=== PATIENT | female | born 1930 | race Caucasian/White ===

== ENCOUNTER 2016-11-18 06:26 | Emergency (ER) | payer OTHER ==
[~2016-11-18] VITALS: Ht 157.5 cm; Wt 74.3 kg
[~2016-11-18 06:26] MED LIST: ARTIFICIAL TEAR15 M3 BOTH EYES; ASPIRIN81 M2 PO; ATROVENT 00.5 MG/2.5 IH; BACLOFEN10 MG PO; BENTYL10 MG PO; CLONIDINE HCL0.1 MG PO; COUGH CONT100 MG/5 M PO; DAILY VITE1 EAC1 PO; DULCOLAX10 MG PR; DULCOLAX5 MG PO; EFFEXOR XR75 MG PO; ELIQUIS2.5 MG PO; ELIQUIS5 MG PO; FUROSEMIDE20 MG PO; GABAPENTIN300 MG PO; HYDROCHLOROTHIA25 MG PO; LEVOFLOXACIN750 MG PO; LIPITOR40 MG PO; LISINOPRIL20 MG PO; LISINOPRIL40 MG PO; LO-DOSE ASPIRIN81 M1 PO; LOPRESSOR100 M1 PO; LOPRESSOR50 MG PO; LOVENOX40 MG/0.4 SC; METAXALONE400 MG PO; METAXALONE800 MG PO; METOPROLOL TART50 MG PO; METRONIDAZOLE500 MG PO; MILK OF MAGN PO; MULTI VITAMIN1 EACH PO; MULTIVITAMIN1 EAC2 PO; NATURAL BALANCE15 M1 BOTH EYES; NORCO 5/3251 TABLET PO; NORVASC10 MG PO; NORVASC5 MG OP; NORVASC5 MG PO; PROCTOZONE-HC30 GM PR; PROZAC20 MG PO; SENNA LAXATIVE8.6 MG PO; SENNA S TABLET1 EACH PO; SENNA-DOCUSATE1 EAC1 PO; TEARS NATURALE-15 ML BOTH EYES; TEARS NATURALE1 EACH BOTH EYES; TRAZODONE HCL50 MG PO; TYLENOL ARTHRI650 MG PO; TYLENOL REGULA325 MG PO; ULTRAM50 MG PO; ZANTAC150 MG PO
[2016-11-18] MEDS ORDERED: PERCOCET 5/31 TABLET PO (10:16)
[2016-11-18 12:01] VITALS: BP 143/89
== END 2016-11-18 12:22 ==
LOC: EME 06:26
PROC: 2W3MX1Z Immobilization of Left Lower Extremity using Splint (ICD-10-PCS; principal; 2016-11-18)
DX: S82.832A Other fracture of upper and lower end of left fibula, initial encounter for closed fracture (principal); S82.52XA Displaced fracture of medial malleolus of left tibia, initial encounter for closed fracture; W18.30XA Fall on same level, unspecified, initial encounter; Y92.129 Unspecified place in nursing home as the place of occurrence of the external cause; E78.5 Hyperlipidemia, unspecified; I10 Essential (primary) hypertension; Z86.73 Personal history of transient ischemic attack (TIA), and cerebral infarction without residual deficits; Z79.82 Long term (current) use of aspirin; Z87.891 Personal history of nicotine dependence
CPT/HCPCS: 73502; 73590; 73610; 99281; 99284; J3010

== ENCOUNTER 2017-09-24 16:03 | Observation (INO) | payer OTHER ==
[~2017-09-24] VITALS: Ht 157.5 cm; Wt 74.1 kg
[~2017-09-24 16:03] MED LIST changes: +PERCOCET 5/31 TABLET PO
[2017-09-24 17:21] LABS: HEMATOCRIT 42.9 % (36.0-46.0); MCH 27.2 PG (29.0-34.0); MCHC 33.1 G/DL (30.0-36.0); MCV 82.2 FL (83-99); MEAN PLAT.VOLUME 10.6 uM^3 (9.5-12.4); PLATELET COUNT 323 K/uL (156-360); RBC DIS.WIDTH-CV 15.9 % (11.8-14.6); RBC DIS.WIDTH-SD 47.6 % (39-53); RED BLOOD COUNT 5.22 M/uL (3.80-5.20); WHITE BLOOD COUNT 11.4 K/uL (4.1-10.2)
[2017-09-24 17:31] LABS: CHLORIDE 108 mEq/L (99-109); POTASSIUM 3.6 mEq/L (3.7-5.4); SODIUM 140 mEq/L (136-147)
[2017-09-24 17:32] LABS: GLUCOSE 121 mg/dL (70-99)
[2017-09-24 17:34] LABS: ANION GAP 7 MEQ/L (2-14)
[2017-09-24 17:36] LABS: GFR ESTIMATE (CALCULATED) > 59 mL/min/
[2017-09-24 17:37] LABS: UREA NITROGEN (BUN) 15 mg/dL (9-23)
[2017-09-24 17:41] LABS: TROP-I INTERPRETATION NEGATIVE; TROPONIN-I 0.01 ng/mL (0.0-0.30)
[2017-09-24 21:08] VITALS: BP 184/78
[2017-09-24 21:29] LABS: HDL CHOLESTEROL 38 MG/DL (Desirable>=50); LDL CHOLESTEROL 77 mg/dL (Desirable<100); NON-HDL CHOLESTEROL 107 mg/dL (Desirable<160); TOTAL CHOLESTEROL 145 mg/dL (Desirable<200); TRIGLYCERIDES 148 MG/DL (Normal: <150)
[2017-09-25 00:05] LABS: TROP-I INTERPRETATION NEGATIVE; TROPONIN-I < 0.01 ng/mL (0.0-0.30)
[2017-09-25 00:10] VITALS: BP 178/81
[2017-09-25] MEDS ORDERED: GABAPENTIN100 MG PO (01:52)
[2017-09-25] MEDS ORDERED: ST. JOSEPH ASPI81 MG PO (01:57)
[2017-09-25] MEDS ORDERED: NITROSTAT0.4 MG SL (01:58)
[2017-09-25] MEDS ORDERED: COLACE100 MG PO (01:59)
[2017-09-25] MEDS ORDERED: MELATONIN3 MG PO (02:01)
[2017-09-25] MEDS ORDERED: BENTYL10 MG PO (02:01)
[2017-09-25] MEDS ORDERED: VITAMIN D22000 UNIT PO (02:02)
[2017-09-25] MEDS ORDERED: LISINOPRIL30 MG PO (02:07)
[2017-09-25] MEDS ORDERED: EFFEXOR75 MG PO (02:09)
[2017-09-25] MEDS ORDERED: OMEPRAZOLE20 MG PO (02:11)
[2017-09-25 04:06] VITALS: BP 180/82
[2017-09-25 05:36] LABS: TROP-I INTERPRETATION NEGATIVE; TROPONIN-I 0.02 ng/mL (0.0-0.30)
[2017-09-25 05:50] LABS: ANION GAP 12 MEQ/L (2-14); CHLORIDE 106 MEQ/L (99-109); GFR ESTIMATE (CALCULATED) > 59 mL/min/; GLUCOSE 114 mg/dL (70-99); MAGNESIUM 1.8 mg/dl (1.3-2.7); SAMPLE HEMOLYSIS CHECK 0; SAMPLE ICTERIC CHECK 0; SAMPLE LIPEMIA CHECK 0; SODIUM 142 MEQ/L (136-147); UREA NITROGEN (BUN) 14 mg/dL (9-23)
[2017-09-25 08:00] VITALS: BP 103/58
[2017-09-25 11:16] VITALS: BP 197/84
[2017-09-25] MEDS ORDERED: IMDUR60 MG PO (14:47)
[2017-09-25] MEDS ORDERED: LISINOPRIL40 MG PO (14:47)
[2017-09-25 16:05] VITALS: BP 184/83
[2017-09-25 18:35] VITALS: BP 170/80
== END 2017-09-25 18:40 ==
LOC: EME 16:03 → EDOF 19:39 → 5WEST 19:39 → EDOF 19:39 → ENRESERV 19:41 → 5WEST 20:39
PROVIDERS: Emergency Medicine; Physician Assistant
DX: R07.9 Chest pain, unspecified (principal); I10 Essential (primary) hypertension; I48.2 Chronic atrial fibrillation; I69.354 Hemiplegia and hemiparesis following cerebral infarction affecting left non-dominant side; Z99.3 Dependence on wheelchair; I73.9 Peripheral vascular disease, unspecified; K58.0 Irritable bowel syndrome with diarrhea; E78.5 Hyperlipidemia, unspecified; R94.31 Abnormal electrocardiogram [ECG] [EKG]; R06.02 Shortness of breath; Z87.891 Personal history of nicotine dependence; Z88.0 Allergy status to penicillin; Z88.8 Allergy status to other drugs, medicaments and biological substances; Z79.01 Long term (current) use of anticoagulants; Z79.82 Long term (current) use of aspirin; Z66 Do not resuscitate
CPT/HCPCS: 71020; 80048; 80061; 83735; 84484; 85027; 93005; 99281; 99285; G0378

== ENCOUNTER 2018-03-27 13:09 | Inpatient (IN) | payer OTHER ==
[~2018-03-27] VITALS: Ht 162.6 cm; Wt 63.9 kg
[~2018-03-27 13:09] MED LIST changes: +COLACE100 MG PO; +EFFEXOR75 MG PO; +GABAPENTIN100 MG PO; +GENTEAL TEARS 015 ML BOTH EYES; +IMDUR60 MG PO; +LISINOPRIL30 MG PO; +MELATONIN3 MG PO; +NITROSTAT0.4 MG SL; +OMEPRAZOLE20 MG PO; +ST. JOSEPH ASPI81 MG PO; -TEARS NATURALE-15 ML BOTH EYES; +VITAMIN D22000 UNIT PO
[2018-03-27 14:03] LABS: HEMATOCRIT 49.9 % (36.0-46.0); HEMOGLOBIN 16.7 G/DL (11.9-15.5); MCH 28.3 PG (29.0-34.0); MCHC 33.5 G/DL (30.0-36.0); MCV 84.4 FL (83-99); PLATELET COUNT 320 K/uL (156-360); RBC DIS.WIDTH-CV 16.4 % (11.8-14.6); RBC DIS.WIDTH-SD 49.1 % (39-53); RED BLOOD COUNT 5.91 M/uL (3.80-5.20); WHITE BLOOD COUNT 22.7 K/uL (4.1-10.2)
[2018-03-27 14:20] LABS: ALBUMIN 4.1 g/dL (3.2-4.8)
[2018-03-27 14:21] LABS: CHLORIDE 106 mEq/L (99-109); POTASSIUM 4.1 mEq/L (3.7-5.4); SODIUM 139 mEq/L (136-147)
[2018-03-27 14:23] LABS: GLUCOSE 114 mg/dL (70-99); TOTAL PROTEIN 7.3 g/dL (6.4-8.3)
[2018-03-27 14:25] LABS: TOTAL BILIRUBIN 0.9 mg/dL (0.0-1.0)
[2018-03-27 14:26] LABS: ALKALINE PHOSPHATASE 112 IU/L (3-129)
[2018-03-27 14:27] LABS: CREATININE 0.9 mg/dL (0.6-1.3); GFR ESTIMATE (CALCULATED) > 59 mL/min/
[2018-03-27 14:28] LABS: AST (GOT) 26 IU/L (2-34); UREA NITROGEN (BUN) 12 mg/dL (9-23)
[2018-03-27 14:30] LABS: ALT (GPT) 24 IU/L (3-49); LIPASE 21 U/L (1.0-51.0)
[2018-03-27 14:33] LABS: TROP-I INTERPRETATION NEGATIVE; TROPONIN-I < 0.01 ng/mL (0.0-0.30)
[2018-03-27 14:47] LABS: APPEARANCE CLEAR ((CLEAR)); BILIRUBIN NEGATIVE; BLOOD SMALL; COLOR STRAW ((YELLOW)); GLUCOSE (STRIP) NEGATIVE; KETONES NEGATIVE; LEUKOCYTES NEGATIVE; NITRITE NEGATIVE; PROTEIN (STRIP) 100; UROBILINOGEN 0.2 MG/DL (0.2-1.0)
[2018-03-27 14:54] LABS: BACTERIA NONE SEEN /HPF; EPITHELIAL CELLS RARE /HPF; HYALINE CASTS 0-5 /LPF; MUCUS NONE SEEN /LPF; UCUL ADDED? NO; WHITE BLOOD CELLS 0-5 /HPF (0-5)
[2018-03-27] MEDS ORDERED: VITAMIN D2000 UNIT PO (17:11)
[2018-03-27] MEDS ORDERED: ZESTRIL40 MG PO (17:12)
[2018-03-27] MEDS ORDERED: IMDUR60 MG PO (17:13)
[2018-03-27] MEDS ORDERED: TYLENOL REGULA325 MG PO (17:14)
[2018-03-27] MEDS ORDERED: SKELAXIN800 MG PO (17:15)
[2018-03-27] MEDS ORDERED: COUGH SYRU100 MG/5 M PO (17:17)
[2018-03-27] MEDS ORDERED: MAALOX MAXIMUM355 ML PO (17:17)
[2018-03-27] MEDS ORDERED: FLEET ENEMA-AD118 ML PR (17:20)
[2018-03-27 18:28] VITALS: BP 123/60
[2018-03-27 19:00] VITALS: BP 144/72
[2018-03-27 23:12] VITALS: BP 109/58
[2018-03-28 03:00] VITALS: BP 131/61
[2018-03-28 05:26] LABS: CHLORIDE 110 MEQ/L (99-109); CREATININE 0.8 MG/DL (0.6-1.3); GFR ESTIMATE (CALCULATED) > 59 mL/min/; GLUCOSE 99 mg/dL (70-99); POTASSIUM 3.8 MEQ/L (3.7-5.4); SODIUM 141 MEQ/L (136-147); UREA NITROGEN (BUN) 13 mg/dL (9-23)
[2018-03-28 06:24] LABS: HEMATOCRIT 40.2 % (36.0-46.0); MCH 27.5 PG (29.0-34.0); MCHC 32.3 G/DL (30.0-36.0); RBC DIS.WIDTH-CV 16.3 % (11.8-14.6); RBC DIS.WIDTH-SD 50.2 % (39-53); RED BLOOD COUNT 4.73 M/uL (3.80-5.20); WHITE BLOOD COUNT 24.4 K/uL (4.1-10.2)
[2018-03-28 06:50] LABS: PLAT.SUFFICIENCY ADEQUATE
[2018-03-28 06:58] LABS: PLATELET COUNT 209 K/uL (156-360)
[2018-03-28 08:00] VITALS: BP 162/70
[2018-03-28 11:27] VITALS: BP 141/65
[2018-03-28 17:27] VITALS: BP 178/80
[2018-03-28 20:10] VITALS: BP 162/82
[2018-03-28 23:47] VITALS: BP 146/88
[2018-03-29] VITALS (7 sets, daily range): BP systolic 170–194; BP diastolic 78–102
[2018-03-29 05:36] LABS: HEMATOCRIT 41.6 % (36.0-46.0); HEMOGLOBIN 13.5 G/DL (11.9-15.5); MCH 27.8 PG (29.0-34.0); MCHC 32.5 G/DL (30.0-36.0); MCV 85.6 FL (83-99); PLATELET COUNT 225 K/uL (156-360); RBC DIS.WIDTH-SD 52.1 % (39-53); RED BLOOD COUNT 4.86 M/uL (3.80-5.20); WHITE BLOOD COUNT 12.5 K/uL (4.1-10.2)
[2018-03-29 05:52] LABS: CHLORIDE 109 MEQ/L (99-109); CREATININE 0.7 MG/DL (0.6-1.3); GFR ESTIMATE (CALCULATED) > 59 mL/min/; GLUCOSE 139 mg/dL (70-99); POTASSIUM 3.8 MEQ/L (3.7-5.4); SODIUM 140 MEQ/L (136-147); UREA NITROGEN (BUN) 12 mg/dL (9-23)
[2018-03-30 03:30] VITALS: BP 200/70
[2018-03-30 06:55] VITALS: BP 162/84
[2018-03-30 11:17] VITALS: BP 169/76
[2018-03-30 17:10] VITALS: BP 164/80
[2018-03-30 20:00] VITALS: BP 147/65
[2018-03-30 23:30] VITALS: BP 178/78
[2018-03-31 00:27] VITALS: BP 122/81
[2018-03-31 04:15] VITALS: BP 186/84
[2018-03-31 07:55] VITALS: BP 165/79
[2018-03-31 09:57] LABS: BASOPHIL (%) 0.6 % (0-1); BASOPHIL COUNT 0.1 K/uL (0-0.1); EOSINOPHIL (%) 2.2 % (0-5); EOSINOPHIL COUNT 0.2 K/uL (0-0.3); HEMOGLOBIN 12.5 G/DL (11.9-15.5); IMMATURE GRANULOCYTE (%) 0.6 % (0.0-0.7); LYMPHOCYTE (%) 13.8 % (15-42); LYMPHOCYTE COUNT 1.2 K/uL (1.0-2.8); MCH 27.9 PG (29.0-34.0); MCHC 32.9 G/DL (30.0-36.0); MCV 84.8 FL (83-99); MONOCYTE (%) 6.8 % (3-12); MONOCYTE COUNT 0.6 K/uL (0-0.8); NEUTROPHIL COUNT 6.8 K/uL (1.8-6.4); PLATELET COUNT 248 K/uL (156-360); RBC DIS.WIDTH-SD 52.3 % (39-53); RED BLOOD COUNT 4.48 M/uL (3.80-5.20)
[2018-03-31 10:34] LABS: CHLORIDE 106 MEQ/L (99-109); CREATININE 0.6 MG/DL (0.6-1.3); GFR ESTIMATE (CALCULATED) > 59 mL/min/; GLUCOSE 134 mg/dL (70-99); POTASSIUM 3.4 MEQ/L (3.7-5.4); SODIUM 140 MEQ/L (136-147); UREA NITROGEN (BUN) 14 mg/dL (9-23)
[2018-03-31] MEDS ORDERED: CEFDINIR300 MG PO (11:13)
[2018-03-31] MEDS ORDERED: TRAMADOL HCL50 MG PO (11:15)
[2018-03-31 11:45] VITALS: BP 169/80
== END 2018-03-31 13:44 | DRG 871 ==
LOC: EME 13:09 → EDOF 16:38 → 4EAST 16:38 → ENRESERV 16:39 → 4EAST 17:49
PROVIDERS: Emergency Medicine; Internal Medicine
DX: A40.3 Sepsis due to Streptococcus pneumoniae (principal); J13 Pneumonia due to Streptococcus pneumoniae; R78.81 Bacteremia; I48.2 Chronic atrial fibrillation; J96.01 Acute respiratory failure with hypoxia; G92 Toxic encephalopathy; K58.9 Irritable bowel syndrome, unspecified; R65.20 Severe sepsis without septic shock; J18.9 Pneumonia, unspecified organism; I73.9 Peripheral vascular disease, unspecified; I10 Essential (primary) hypertension; K57.30 Diverticulosis of large intestine without perforation or abscess without bleeding; E78.5 Hyperlipidemia, unspecified; E87.2 Acidosis; E66.9 Obesity, unspecified; K59.00 Constipation, unspecified; Z66 Do not resuscitate; Z68.33 Body mass index [BMI] 33.0-33.9, adult; Z87.891 Personal history of nicotine dependence; Z88.1 Allergy status to other antibiotic agents; I69.354 Hemiplegia and hemiparesis following cerebral infarction affecting left non-dominant side; Z99.3 Dependence on wheelchair; Z79.01 Long term (current) use of anticoagulants; Z79.899 Other long term (current) drug therapy; Z79.82 Long term (current) use of aspirin; Z90.710 Acquired absence of both cervix and uterus; G31.9 Degenerative disease of nervous system, unspecified; Z88.0 Allergy status to penicillin; R41.0 Disorientation, unspecified
CPT/HCPCS: 70450; 71046; 74177; 80048; 80053; 80202; 81003; 83605; 83690; 84484; 85025; 85027; 87040; 87070; 87077; 87181; 87205; 87449; 87641; 87801; 93005; 94640; 94640 76; 99202; 99281; 99285; J0360; J0456; J0692; J0696; J2405; J3370; J7030